=== PATIENT | male | born 1945 | race Caucasian/White ===

== ENCOUNTER 2024-12-02 11:00 | Emergency (ER) | payer OTHER, MEDICARE | END 2024-12-02 13:45 | disposition home or self-care (01) | LOC: JP.ED 11:00 | DX: S92.334A Nondisplaced fracture of third metatarsal bone, right foot, initial encounter for closed fracture (principal); S92.344A Nondisplaced fracture of fourth metatarsal bone, right foot, initial encounter for closed fracture; S92.324A Nondisplaced fracture of second metatarsal bone, right foot, initial encounter for closed fracture; Z79.899 Other long term (current) drug therapy; Z88.0 Allergy status to penicillin; W01.0XXA Fall on same level from slipping, tripping and stumbling without subsequent striking against object, initial encounter | CPT/HCPCS: 70450; 70450-26; 73610-26-RT; 73610-RT; 73630-26-RT; 73630-RT; 99283; 99284 ==